=== PATIENT | male | born 1990 | race Caucasian/White ===

== ENCOUNTER 2020-07-16 21:05 | Emergency (ER) | payer OTHER ==
[2020-07-16] MEDS ORDERED: KETOROLAC 60 MG/2 ML VIAL IM STA (21:32)
--- NOTE | 2020-07-16 22:34 | ED Physician Documentation ---
History of Present Illness - Stated complaint Stated Complaint: LT FOOT INJURY - Chief complaint Chief Complaint: Trauma Ext - History obtained from History obtained from: Patient - Additonal information Additional information: 29-year-old man presents with left foot injury while snowboarding around 1500 today. Patient states that he fell with loose bindings and twisted his foot still boarded. He was able to bear weight immediately. Still worried the way down the lateral but has had progressively worsening gradual onset pain since that time located to the midfoot, nonradiating, aching, associated with mild swelling. Denies numbness or weakness. Foot is painful with range of motion at the ankle. Review of Systems Skin: denies: Lesions Musculoskeletal: reports: Extremity pain, Joint pain Neurologic: denies: Focal weakness PD PAST MEDICAL HISTORY - Past Medical History Past Medical History: No - Past Surgical History Past Surgical History: No - Present Medications Home Medications: Ambulatory Orders Medication Instructions Recorded Confirmed No Known Home Medications 07/16/20 07/16/20 - Allergies Allergies/Adverse Reactions: Allergies Allergy/AdvReac Type Severity Reaction Status Date / Time No Known Drug Allergies Allergy Verified 07/16/20 21:14 - Social History Does the pt smoke?: No Smoking Status: Former smoker Does the pt drink ETOH?: Yes Does the pt have substance abuse?: Yes Substance Use and Type: Marijuana - Immunizations Immunizations are current?: Yes PD ED PE NORMAL - Vitals Vital signs reviewed: Yes - General General: Alert and oriented X 3, No acute distress - Derm Derm: Normal color, Warm and dry - Extremities Extremities: No deformity, Other (L ankle tender with rom. L midfoot ttp. normal DP/PT pulses, cap refill, sensation) Results - Vitals Vitals: Vital Signs - 24 hr 07/16/20 07/16/20 21:11 22:56 Temperature 37.2 C 37.1 C Heart Rate 108 H 90 Respiratory 17 19 Rate Blood Pressure 127/72 150/70 H O2 Saturation 98 99 Oxygen O2 Source Room air PD MEDICAL DECISION MAKING - ED course ED course: 29-year-old man presents with midfoot injury while snowboarding today. X-rays noncontributory. Patient with ligament injury versus occult fracture. We will have him follow-up with orthopedics. Splint is applied, crutches given. Strict return precautions given. Departure - Departure Disposition: 01 Home, Self Care Clinical Impression: Injury of foot, left Condition: Good Instructions: ED RICE Follow-Up: Luiz Ng MD [Provider Admit Priv/Credential] - Comments: You were seen in the emergency department for a foot injury. Your x-rays did not show a break in the bone but you should have follow-up x-rays in 1 week with orthopedics. Wear your splint until that time. Return to the emergency department for any new or worsening symptoms or other concerns. Discharge Date/Time: 07/16/20 23:04
[2020-07-16 22:56] VITALS: BP 150/70
--- NOTE | 2020-07-17 08:16 | XRAY Report ---
PROCEDURE: Ankle 3 View LT INDICATIONS: midfoot injury, snowboarding accident TECHNIQUE: 3 views of the ankle were acquired. COMPARISON: None. FINDINGS: Sub-5 mm corticated chronic calcific density projects at the lateral ankle, adjacent to the tip of th e lateral malleolus. Minimal posterior calcaneal spurring. Elsewhere, no acute fracture Soft tissues: No tibiotalar joint effusion. Achilles tendon appears normal. IMPRESSION: No acute fracture identified. Findings are concordant with the preliminary study interpr etation provided at the time of the study. Reviewed by: Kane Pineda MD on 07/17/2020 8:15 AM PST Approved by: Kane Pineda MD on 07/17/2020 8:15 AM PST Station ID: [id number]
--- NOTE | 2020-07-17 08:17 | XRAY Report ---
PROCEDURE: Foot 3 View LT INDICATIONS: midfoot injury, snowboarding TECHNIQUE: 3 views of the foot were acquired. COMPARISON: None. FINDINGS: No fracture. Scattered subchondral sclerosis and spurring. Posterior calcaneal spurring. Chronic unf used accessory navicular. Soft tissues: No tibiotalar joint effusion. Achilles tendon appears normal. IMPRESSION: No definite fracture however follow-up radiographs in 10 days could be performed if the patient's sym ptoms do not improve to exclude occult fracture/assess for healing sclerosis. Findings are concordant with the preliminary study interpretation provided at the time of the study. Reviewed by: Kane Pineda MD on 07/17/2020 8:16 AM PST Approved by: Kane Pineda MD on 07/17/2020 8:16 AM PST Station ID: [id number]
== END 2020-07-16 23:04 | disposition home or self-care (01) ==
LOC: ED 21:05
DX: S99.922A Unspecified injury of left foot, initial encounter (principal); V00.311A Fall from snowboard, initial encounter; Y93.23 Activity, snow (alpine) (downhill) skiing, snowboarding, sledding, tobogganing and snow tubing; Z87.891 Personal history of nicotine dependence
CPT/HCPCS: 96372; 99283; 99284